=== PATIENT | female | born 1990 | race Caucasian/White ===

== ENCOUNTER 2017-09-25 05:28 | Inpatient (IN) | payer MEDICAID ==
[~2017-09-25] VITALS: Ht 170.2 cm; Wt 83.5 kg
--- NOTE | ~2017-09-25 | DS ---
PATIENT:ELISA PURCELL :89 MEDICAL RECORD: [id number] DISCHARGE SUMMARY ADMISSION DATE: 09/25/17 DISCHARGE DATE: 09/27/17 HISTORY OF PRESENT ILLNESS: The patient is a 26-year-old G2, P0 at 39 weeks and 3 days, admitted for induction of labor per patient wishes. The patient was noted to be A positive, group B strep positive, rubella immune. PAST MEDICAL HISTORY: The patient had a past medical history significant for group B strep and tinea corporis. PAST SURGICAL HISTORY: The patient reported a past surgical history significant for cholecystectomy. MEDICATIONS: Included vitamins. FAMILY HISTORY: The patient reported a family history significant for a parent with cancer, not otherwise specified and a sibling with hypertension. SOCIAL HISTORY: Significant for being a former tobacco user. PHYSICAL EXAMINATION: VITAL SIGNS: On initial assessment, vital signs were stable. The patient was afebrile and normotensive. LUNGS: Clear to auscultation. CARDIOVASCULAR: Regular rate and rhythm. PELVIC: Uterus was appropriately sized and nontender. EXTREMITIES: Lower extremities were free of Homans sign, erythema and swelling. LABORATORY DATA: The patient with a category 1 tracing at admission. Admit hemoglobin was found to be 11.0 and a platelet count of 206. ASSESSMENT AND PLAN: 1. At that time, term intrauterine at 39 weeks and 3 days, induction of labor per patient wishes. 2. Positive group B strep. 3. Chronic tinea corporis. Plan at that time for Pitocin induction of labor with artificial rupture of membranes and appropriate wellbeing with a reassuring category 1 tracing. Risks and benefits were discussed including the increased risk of section with induction of labor. The patient voiced understanding and consent. The patient progressed and at approximately 4 cm, AROM was performed with clear fluid. The patient made rapid progression to the second stage and normal spontaneous vaginal delivery over an intact perineum was noted. Delivery note is as on the chart. The patient did well overnight on day #0, tolerating p.o. pain meds, general diet, ambulating and voiding freely. On the morning of day #1 status post normal spontaneous vaginal delivery, the patient continued to do well. Vital signs were stable. The patient was afebrile. Hemoglobin was stable. Uterus was infraumbilical and nontender. She had minimal lochia. Hemoglobin was found to be appropriate at 9.4. The patient tolerating p.o. pain meds and general diet. The patient continued to do well overnight on day #1. On the morning of day #2, the patient was noted to be afebrile and normotensive. The uterus was appropriately sized and involuted and nontender. The patient reported minimal lochia. The DISCHARGE SUMMARY REPORT [id number] BINHELISA patient was tolerating general diet, p.o. pain meds well, voiding freely and ambulating well. The patient was discharged home on day #2 with instructions to follow up in 4 weeks. TRANSINT:[id number] Voice Confirmation ID: [id number] DOCUMENT ID: [id number] STEVE SANTANA MD at 1304 CC: [id number] DICTATION DATE: 11/05/17619 PRESSURE TESTING TECHNICIAN: 11/05/17 1610 DIS IN 09/27/17 [id number] [place] [id number]
[2017-09-25] MEDS ORDERED: PRENATAL COMPLE1 TAB PO (05:36)
[2017-09-25 05:37] VITALS: BP 125/81; BMI 28.9
[2017-09-25 06:38] LABS: HEMATOCRIT 32.5 % (36.0-48.0); MCH 30.5 pg (26.0-34.0); MCHC 33.8 g/dL (31.0-37.0); RBC 3.61 10x6/uL (4.00-5.40); RDW 12.7 % (11.5-14.5); WBC 7.4 10x3/uL (4.8-10.8)
[2017-09-25 07:11] LABS: APPEARANCE SLT CLOUDY (CLEAR); BACTERIA MANY /hpf (NONE SEEN); BILIRUBIN NEGATIVE (NEGATIVE); COLOR YELLOW (YELLOW); GLUCOSE NEGATIVE (NEGATIVE); KETONE NEGATIVE (NEGATIVE); MUCUS <1+ /lpf (NONE SEEN); NITRITE NEGATIVE (NEGATIVE); PROTEIN NEGATIVE (NEGATIVE); SPECIFIC GRAVITY 1.005 (1.005-1.020); UROBILINOGEN NORMAL (NORMAL)
[2017-09-25 13:05] VITALS: Ht 170.2 cm; Wt 83.5 kg
[2017-09-25 20:15] VITALS: BP 121/91
[2017-09-26 04:45] LABS: BASOPHILS 0.1 % (0-2); EOSINOPHILS 0.9 % (0-7); HEMATOCRIT 27.1 % (36.0-48.0); HEMOGLOBIN 9.1 g/dL (12-16); IMMATURE GRANULOCYTES 0.2 % (0-5); LYMPHOCYTES 30.7 % (15-50); MCH 30.1 pg (26.0-34.0); MCHC 33.6 g/dL (31.0-37.0); MCV 89.7 fL (80.0-100.0); MEAN PLATELET VOLUME 10.7 fL (7.4-10.4); MONOCYTES 6.9 % (2-11); NEUTROPHILS 61.2 % (40-80); PLATELET COUNT 158 10x3/uL (130-400); RBC 3.02 10x6/uL (4.00-5.40); RDW 12.5 % (11.5-14.5); WBC 8.1 10x3/uL (4.8-10.8)
[2017-09-26 07:24] LABS: RAPID PLASMA REAGIN Non Reactive (Non Reactive)
[2017-09-26 07:30] VITALS: BP 114/65
[2017-09-26 14:14] LABS: HEMATOCRIT 31.6 % (36.0-48.0); HEMOGLOBIN 10.6 g/dL (12-16); MCH 30.1 pg (26.0-34.0); MCHC 33.5 g/dL (31.0-37.0); MCV 89.8 fL (80.0-100.0); MEAN PLATELET VOLUME 10.9 fL (7.4-10.4); RBC 3.52 10x6/uL (4.00-5.40); RDW 12.8 % (11.5-14.5); WBC 9.2 10x3/uL (4.8-10.8)
[2017-09-26 16:45] VITALS: BP 118/64
[2017-09-26 20:25] VITALS: BP 128/68
== END 2017-09-27 19:44 | disposition home or self-care (01) | DRG 775 ==
LOC: D.LD 05:28
PROVIDERS: Obstetrics & Gynecology
PROC: 3E033VJ Introduction of Other Hormone into Peripheral Vein, Percutaneous Approach (ICD-10-PCS; principal; 2017-09-25)
PROC: 10E0XZZ Delivery of Products of Conception, External Approach (ICD-10-PCS; 2017-09-25)
PROC: 0UQMXZZ Repair Vulva, External Approach (ICD-10-PCS; 2017-09-25)
DX: O99.824 Streptococcus B carrier state complicating childbirth (principal); B35.4 Tinea corporis; O71.82 Other specified trauma to perineum and vulva; Z37.0 Single live birth; Z3A.39 39 weeks gestation of pregnancy